=== PATIENT | female | born 1990 | race Two or more races ===

== ENCOUNTER 2017-05-30 19:18 | Emergency (ER) | payer OTHER ==
[~2017-05-30] VITALS: Ht 157.5 cm; Wt 79.2 kg
[2017-05-30] MEDS ORDERED: PEN-VEE K,VEET500 MG PO (20:59)
[2017-05-30] MEDS ORDERED: XYLOCAINE VISC100 ML PO (20:59)
[2017-05-30 21:13] VITALS: BP 120/83
== END 2017-05-30 21:14 | disposition home or self-care (01) ==
LOC: EME 19:18
DX: J02.0 Streptococcal pharyngitis (principal); F17.200 Nicotine dependence, unspecified, uncomplicated
CPT/HCPCS: 87651 90; 99281; 99284; J1100